=== PATIENT | male | born 1965 | race Caucasian/White ===

== ENCOUNTER 2020-10-07 12:22 | Inpatient (IN) ==
[2020-10-07] MEDS ORDERED: Haloperidol Lactate 5 MG/ML VIAL IM ONE (15:11)
[2020-10-07] MEDS ORDERED: Ondansetron 4 MG/2 ML VIAL IVP PRN (15:12)
[2020-10-07] MEDS ORDERED: Naloxone 0.4 MG/ML INJ IVP PRN (15:12)
[2020-10-07] MEDS ORDERED: Ringers Solution, Lactated 1,000 ML IVC SCH (15:15)
[2020-10-07] MEDS ORDERED: D5% in Water 1,000 ML IVC PRN (15:30)
[2020-10-07] MEDS ORDERED: Dextrose Gel 15 GM/37.5 ML TUBE PO PRN ×2 (15:30)
[2020-10-07] MEDS ORDERED: *HR* Dextrose 50 % in Water (Vial) 50 ML VIAL IVP PRN (15:30)
[2020-10-07] MEDS ORDERED: Haloperidol Lactate 5 MG/ML VIAL IVP PRN (15:55)
[2020-10-07] MEDS: Acetaminophen 325 MG TABLET PO PRN (16:14)
[2020-10-07] MEDS: Insulin LISPRO 300 UNITS/3 ML VIAL SUBQ SCH ×2 (16:19→21:06)
[2020-10-07] MEDS: 0.9 % Sodium Chloride 1,000 ML IVC SCH (16:19)
[2020-10-07] MEDS: Topiramate 25 MG CAP.SPRINK PO SCH (18:44)
[2020-10-07] MEDS: *HR* Heparin 5,000 UNIT/ML VIAL SQ SCH (18:45)
[2020-10-07] MEDS: Gabapentin 300 MG CAPSULE PO SCH (20:53)
[2020-10-07] MEDS: Insulin DETEMIR 100 UNIT/ML X5UNITS SUBQ SCH (21:06)
[2020-10-08] MEDS: 0.9 % Sodium Chloride 1,000 ML IVC SCH ×3 (01:17→22:47)
[2020-10-08] MEDS: *HR* Heparin 5,000 UNIT/ML VIAL SQ SCH ×2 (05:30→17:17)
[2020-10-08] MEDS ORDERED: Vancomycin 1,500 MG/265 ML IV.SOLN IVPB SCH (08:00)
[2020-10-08] MEDS: Ertapenem 1,000 MG in 0.9 % Sodium Chloride Mini Bag 100 ML IVPB SCH ×2 (08:04→08:27)
[2020-10-08] MEDS: Gabapentin 300 MG CAPSULE PO SCH ×3 (08:04→20:54)
[2020-10-08] MEDS: Topiramate 25 MG CAP.SPRINK PO SCH ×2 (08:04→17:16)
[2020-10-08] MEDS: Insulin LISPRO 300 UNITS/3 ML VIAL SUBQ SCH ×4 (08:12→20:54)
[2020-10-08] MEDS: Acetaminophen 325 MG TABLET PO PRN (12:38)
[2020-10-08 16:09] LABS: Basophils # 0.1 K/mcL (0.0-0.2); Basophils % 0.4 %; Eosinophils # 0.2 K/mcL (0.0-0.6); Eosinophils % 1.5 %; Hematocrit 40.6 % (37.5-50.1); Hemoglobin 13.2 g/dL (12.9-16.9); Immature Granulocytes % 0.7 % (0-4); Lymphocytes % 14.2 %; Mean Corpuscular HGB Conc 32.5 g/dL (31.6-35.5); Mean Corpuscular Hemoglobin 28.3 pg (28.0-33.3); Mean Corpuscular Volume 86.9 fL (83.0-100.0); Mean Platelet Volume 11.6 fL (9.4-12.4); Monocytes # 1.8 K/mcL (0.0-1.3); Monocytes % 13.1 %; Neutrophils # 9.7 K/mcL (1.6-8.9); Platelet Count 198 K/mcL (140-400); Red Blood Count 4.67 M/mcL (4.19-5.50); Red Cell Distribution Width 14.2 % (11.5-14.5); Segmented Neutrophils % 70.1 %; White Blood Count 13.8 K/mcL (4.3-11.1)
[2020-10-08 16:25] LABS: BUN/Creatinine Ratio 22 (6-26); Blood Urea Nitrogen 18 mg/dL (6-20); Calcium 8.4 mg/dL (8.6-10.3); Carbon Dioxide 22 mEq/L (23-29); Chloride 106 mEq/L (98-107); Glucose 349 mg/dL (70-105); Magnesium 1.3 mg/dL (1.6-2.6); Osmolality,Calculated 294 (280-300); Potassium 3.2 mEq/L (3.5-5.1); Sodium 134 mEq/L (136-145); eGFR For African Americans > 60 (> 60); eGFR For Non-African Americans > 60 (> 60)
[2020-10-08] MEDS: Insulin DETEMIR 100 UNIT/ML X5UNITS SUBQ SCH (20:55)
[2020-10-09 03:29] LABS: Basophils # 0.1 K/mcL (0.0-0.2); Basophils % 0.7 %; Eosinophils # 0.4 K/mcL (0.0-0.6); Eosinophils % 3.3 %; Hematocrit 41.2 % (37.5-50.1); Hemoglobin 13.5 g/dL (12.9-16.9); Immature Granulocytes % 0.5 % (0-4); Lymphocytes # 2.3 K/mcL (0.6-4.6); Lymphocytes % 21.2 %; Mean Corpuscular HGB Conc 32.8 g/dL (31.6-35.5); Mean Corpuscular Hemoglobin 28.5 pg (28.0-33.3); Mean Corpuscular Volume 87.1 fL (83.0-100.0); Mean Platelet Volume 11.2 fL (9.4-12.4); Monocytes # 1.3 K/mcL (0.0-1.3); Monocytes % 12.4 %; Neutrophils # 6.6 K/mcL (1.6-8.9); Platelet Count 203 K/mcL (140-400); Red Blood Count 4.73 M/mcL (4.19-5.50); Red Cell Distribution Width 14.1 % (11.5-14.5); Segmented Neutrophils % 61.9 %; White Blood Count 10.7 K/mcL (4.3-11.1)
[2020-10-09] MEDS: Acetaminophen 325 MG TABLET PO PRN (03:41)
[2020-10-09 03:47] LABS: BUN/Creatinine Ratio 19 (6-26); Blood Urea Nitrogen 15 mg/dL (6-20); Calcium 8.5 mg/dL (8.6-10.3); Carbon Dioxide 21 mEq/L (23-29); Chloride 108 mEq/L (98-107); Glucose 264 mg/dL (70-105); Osmolality,Calculated 294 (280-300); Potassium 3.2 mEq/L (3.5-5.1); Sodium 137 mEq/L (136-145); eGFR For African Americans > 60 (> 60); eGFR For Non-African Americans > 60 (> 60)
[2020-10-09] MEDS: *HR* Heparin 5,000 UNIT/ML VIAL SQ SCH ×2 (05:33→16:46)
[2020-10-09] MEDS: *HR* OxyCODONE Immed Rel 5 MG TABLET PO PRN ×3 (06:16→22:41)
[2020-10-09] MEDS ORDERED: Potassium Chloride 40 MEQ, Lidocaine 1% 2 ML in 0.9 % Sodium Chloride 500 ML IVPB ONE (07:22)
[2020-10-09] MEDS: Gabapentin 300 MG CAPSULE PO SCH ×3 (08:18→20:04)
[2020-10-09] MEDS: Topiramate 25 MG CAP.SPRINK PO SCH ×2 (08:18→16:46)
[2020-10-09] MEDS: Insulin LISPRO 300 UNITS/3 ML VIAL SUBQ SCH ×4 (08:19→20:23)
[2020-10-09] MEDS ORDERED: cefTRIAXone 1,000 MG in 0.9 % Sodium Chloride Mini Bag 100 ML IVPB SCH (09:00)
[2020-10-09] MEDS: 0.9 % Sodium Chloride 1,000 ML IVC SCH ×2 (10:27→20:02)
[2020-10-09] MEDS ORDERED: Artificial Tears SOLN 15 ML BOTTLE BOTH EYES PRN (12:58)
[2020-10-09] MEDS: Baclofen 10 MG TABLET PO SCH ×2 (16:45→20:04)
[2020-10-09] MEDS ORDERED: Perflutren Lipid Microsphere 1.3 ML in 0.9 % Sodium Chloride 8.7 ML IVP PRN (18:44)
[2020-10-09] MEDS: Nicotine 21 MG PATCH.TD24 TD SCH (20:03)
[2020-10-09] MEDS: CeFAZolin 2 GM/120 ML BAG IVPB SCH (20:05)
[2020-10-09] MEDS: Insulin DETEMIR 100 UNIT/ML X5UNITS SUBQ SCH (20:23)
[2020-10-10] MEDS: CeFAZolin 2 GM/120 ML BAG IVPB SCH ×3 (03:29→20:41)
[2020-10-10] MEDS: 0.9 % Sodium Chloride 1,000 ML IVC SCH (05:39)
[2020-10-10] MEDS: *HR* Heparin 5,000 UNIT/ML VIAL SQ SCH ×3 (05:39→17:16)
[2020-10-10] MEDS: *HR* OxyCODONE Immed Rel 5 MG TABLET PO PRN ×3 (05:40→20:46)
[2020-10-10 05:51] LABS: Basophils # 0.1 K/mcL (0.0-0.2); Basophils % 0.6 %; Eosinophils # 0.4 K/mcL (0.0-0.6); Eosinophils % 4.7 %; Hematocrit 42.5 % (37.5-50.1); Immature Granulocytes % 0.4 % (0-4); Lymphocytes # 2.3 K/mcL (0.6-4.6); Lymphocytes % 27.7 %; Mean Corpuscular HGB Conc 32.9 g/dL (31.6-35.5); Mean Corpuscular Hemoglobin 28.4 pg (28.0-33.3); Mean Corpuscular Volume 86.2 fL (83.0-100.0); Mean Platelet Volume 11.1 fL (9.4-12.4); Monocytes # 0.8 K/mcL (0.0-1.3); Monocytes % 9.9 %; Neutrophils # 4.7 K/mcL (1.6-8.9); Platelet Count 206 K/mcL (140-400); Red Blood Count 4.93 M/mcL (4.19-5.50); Red Cell Distribution Width 14.1 % (11.5-14.5); Segmented Neutrophils % 56.7 %; White Blood Count 8.4 K/mcL (4.3-11.1)
[2020-10-10 06:12] LABS: BUN/Creatinine Ratio 12 (6-26); Blood Urea Nitrogen 10 mg/dL (6-20); Carbon Dioxide 22 mEq/L (23-29); Chloride 109 mEq/L (98-107); Glucose 318 mg/dL (70-105); Osmolality,Calculated 299 (280-300); Potassium 3.1 mEq/L (3.5-5.1); Sodium 139 mEq/L (136-145); eGFR For African Americans > 60 (> 60); eGFR For Non-African Americans > 60 (> 60)
[2020-10-10] MEDS: Baclofen 10 MG TABLET PO SCH ×3 (08:46→20:41)
[2020-10-10] MEDS: Topiramate 25 MG CAP.SPRINK PO SCH ×2 (08:46→17:15)
[2020-10-10] MEDS: Loratadine 10 MG TABLET PO SCH (08:46)
[2020-10-10] MEDS: Gabapentin 300 MG CAPSULE PO SCH ×3 (08:47→20:41)
[2020-10-10] MEDS: Sennosides/Docusate Sodium TABLET PO SCH (08:47)
[2020-10-10] MEDS: Nicotine 21 MG PATCH.TD24 TD SCH (08:47)
[2020-10-10] MEDS: Insulin LISPRO 300 UNITS/3 ML VIAL SUBQ SCH ×5 (08:48→20:47)
[2020-10-10] MEDS ORDERED: Insulin DETEMIR 100 UNIT/ML X5UNITS SUBQ SCH (21:00)
[2020-10-11] MEDS: *HR* OxyCODONE Immed Rel 5 MG TABLET PO PRN ×3 (03:09→18:15)
[2020-10-11] MEDS: CeFAZolin 2 GM/120 ML BAG IVPB SCH ×3 (03:10→18:15)
[2020-10-11] MEDS: *HR* Heparin 5,000 UNIT/ML VIAL SQ SCH ×2 (05:23→17:30)
[2020-10-11 05:45] LABS: Basophils # 0.1 K/mcL (0.0-0.2); Basophils % 0.7 %; Eosinophils # 0.4 K/mcL (0.0-0.6); Eosinophils % 4.4 %; Hematocrit 42.7 % (37.5-50.1); Hemoglobin 13.8 g/dL (12.9-16.9); Immature Granulocytes % 0.7 % (0-4); Lymphocytes # 2.4 K/mcL (0.6-4.6); Lymphocytes % 28.6 %; Mean Corpuscular HGB Conc 32.3 g/dL (31.6-35.5); Mean Corpuscular Hemoglobin 28.2 pg (28.0-33.3); Mean Corpuscular Volume 87.3 fL (83.0-100.0); Mean Platelet Volume 11.3 fL (9.4-12.4); Monocytes # 0.8 K/mcL (0.0-1.3); Monocytes % 9.3 %; Neutrophils # 4.7 K/mcL (1.6-8.9); Platelet Count 208 K/mcL (140-400); Red Blood Count 4.89 M/mcL (4.19-5.50); Red Cell Distribution Width 14.2 % (11.5-14.5); Segmented Neutrophils % 56.3 %; White Blood Count 8.4 K/mcL (4.3-11.1)
[2020-10-11 06:07] LABS: BUN/Creatinine Ratio 12 (6-26); Blood Urea Nitrogen 8 mg/dL (6-20); Calcium 8.2 mg/dL (8.6-10.3); Carbon Dioxide 23 mEq/L (23-29); Chloride 107 mEq/L (98-107); Glucose 365 mg/dL (70-105); Osmolality,Calculated 299 (280-300); Potassium 3.4 mEq/L (3.5-5.1); Sodium 138 mEq/L (136-145); eGFR For African Americans > 60 (> 60); eGFR For Non-African Americans > 60 (> 60)
[2020-10-11] MEDS: Sennosides/Docusate Sodium TABLET PO SCH (07:51)
[2020-10-11] MEDS: Baclofen 10 MG TABLET PO SCH ×3 (07:52→21:26)
[2020-10-11] MEDS: Topiramate 25 MG CAP.SPRINK PO SCH ×2 (07:52→17:32)
[2020-10-11] MEDS: Loratadine 10 MG TABLET PO SCH (07:52)
[2020-10-11] MEDS: Insulin LISPRO 300 UNITS/3 ML VIAL SUBQ SCH ×4 (07:53→21:28)
[2020-10-11] MEDS: Nicotine 21 MG PATCH.TD24 TD SCH (07:53)
[2020-10-11] MEDS: Gabapentin 300 MG CAPSULE PO SCH ×3 (07:53→21:26)
[2020-10-11] MEDS ORDERED: Potassium Chloride Elixir 20 MEQ/15 ML UDC PO ONE (09:05)
[2020-10-11] MEDS: Insulin DETEMIR 100 UNIT/ML X5UNITS SUBQ SCH ×2 (09:42→21:28)
[2020-10-11] MEDS ORDERED: Ketorolac 15 MG/ML VIAL IVP ONE (21:30)
[2020-10-12] MEDS ORDERED: ceFAZolin 2,000 MG in 0.9 % Sodium Chloride 100 ML IVPB SCH
[2020-10-12] MEDS: *HR* OxyCODONE Immed Rel 5 MG TABLET PO PRN ×2 (00:41→09:23)
[2020-10-12] MEDS: CeFAZolin 2 GM/120 ML BAG IVPB SCH ×2 (02:11→14:13)
[2020-10-12] MEDS: *HR* Heparin 5,000 UNIT/ML VIAL SQ SCH (05:04)
[2020-10-12 05:35] LABS: Basophils # 0.1 K/mcL (0.0-0.2); Eosinophils # 0.4 K/mcL (0.0-0.6); Eosinophils % 4.3 %; Hemoglobin 13.6 g/dL (12.9-16.9); Immature Granulocytes % 0.9 % (0-4); Lymphocytes # 2.9 K/mcL (0.6-4.6); Lymphocytes % 29.9 %; Mean Corpuscular HGB Conc 32.4 g/dL (31.6-35.5); Mean Corpuscular Volume 86.4 fL (83.0-100.0); Mean Platelet Volume 11.2 fL (9.4-12.4); Monocytes # 0.9 K/mcL (0.0-1.3); Monocytes % 8.8 %; Neutrophils # 5.3 K/mcL (1.6-8.9); Platelet Count 243 K/mcL (140-400); Red Blood Count 4.86 M/mcL (4.19-5.50); Segmented Neutrophils % 55.1 %; White Blood Count 9.7 K/mcL (4.3-11.1)
[2020-10-12 05:59] LABS: BUN/Creatinine Ratio 12 (6-26); Blood Urea Nitrogen 9 mg/dL (6-20); Calcium 8.2 mg/dL (8.6-10.3); Carbon Dioxide 26 mEq/L (23-29); Chloride 106 mEq/L (98-107); Glucose 288 mg/dL (70-105); Osmolality,Calculated 295 (280-300); Potassium 3.3 mEq/L (3.5-5.1); Sodium 138 mEq/L (136-145); eGFR For African Americans > 60 (> 60); eGFR For Non-African Americans > 60 (> 60)
[2020-10-12 08:35] VITALS: BP 140/91
[2020-10-12] MEDS: Insulin LISPRO 300 UNITS/3 ML VIAL SUBQ SCH ×2 (09:18→12:25)
[2020-10-12] MEDS: Nicotine 21 MG PATCH.TD24 TD SCH (09:18)
[2020-10-12] MEDS: Topiramate 25 MG CAP.SPRINK PO SCH (09:19)
[2020-10-12] MEDS: Gabapentin 300 MG CAPSULE PO SCH ×2 (09:19→14:14)
[2020-10-12] MEDS: Sennosides/Docusate Sodium TABLET PO SCH (09:20)
[2020-10-12] MEDS: Baclofen 10 MG TABLET PO SCH ×2 (09:20→14:14)
[2020-10-12] MEDS: Loratadine 10 MG TABLET PO SCH (09:20)
[2020-10-12] MEDS ORDERED: Potassium Chloride Elixir 20 MEQ/15 ML UDC PO ONE (09:26)
[2020-10-12] MEDS: Insulin DETEMIR 100 UNIT/ML X5UNITS SUBQ SCH (09:35)
[2020-10-12 14:01] LABS: Influenza A PCR Negative (Negative); Influenza B PCR Negative (Negative); Resp. Syncytial Virus PCR Negative (Negative)
[2020-10-12 14:03] LABS: SARS-CoV-2 by PCR (In House) Negative (Negative)
[2020-10-12 14:08] LABS: Estimated Average Glucose 375 mg/dl; Hemoglobin A1C 14.7 %
[2020-10-12] MEDS ORDERED: *HR* OxyCODONE Immed Rel 5 MG TABLET PO ONE (15:25)
== END 2020-10-12 16:03 | DRG 466 ==
LOC: 3ANU → SUATTDRO 14:24
PROVIDERS: ADMIT Internal Medicine; ATTEND Internal Medicine

== ENCOUNTER 2020-11-08 14:29 | Inpatient (IN) ==
[2020-11-08] MEDS ORDERED: Naloxone 0.4 MG/ML INJ IVP PRN (16:54)
[2020-11-08] MEDS ORDERED: Acetaminophen 325 MG TABLET PO PRN (16:54)
[2020-11-08] MEDS ORDERED: Vancomycin (wt based) 1,000 MG VIAL IVPB SCH (17:00)
[2020-11-08] MEDS ORDERED: cefTRIAXone 1,000 MG in Water for inj. (sterile) 10 ML IVP ONE (17:00)
[2020-11-08 17:31] LABS: Basophils % 0.3 %; Immature Granulocytes % 0.9 % (0-4)
[2020-11-08 17:32] LABS: Basophils # 0.1 K/mcL (0.0-0.2); Eosinophils # 0.1 K/mcL (0.0-0.6); Eosinophils % 0.3 %; Hematocrit 39.4 % (37.5-50.1); Mean Corpuscular HGB Conc 34.3 g/dL (31.6-35.5); Mean Corpuscular Hemoglobin 29.6 pg (28.0-33.3); Mean Corpuscular Volume 86.4 fL (83.0-100.0); Monocytes # 3.3 K/mcL (0.0-1.3); Monocytes % 13.3 %; Neutrophils # 19.2 K/mcL (1.6-8.9); Platelet Count 237 K/mcL (140-400); Red Blood Count 4.56 M/mcL (4.19-5.50); Red Cell Distribution Width 14.4 % (11.5-14.5); Segmented Neutrophils % 77.2 %; White Blood Count 24.9 K/mcL (4.3-11.1)
[2020-11-08 17:33] LABS: VBG Ionized Calcium 1.08 mmol/L (1.15-1.35)
[2020-11-08 17:41] LABS: Hemoglobin 13.5 g/dL (12.9-16.9)
[2020-11-08 17:43] LABS: INR 1.5; Prothrombin Time 16.9 Seconds (9.4-12.1)
[2020-11-08 17:45] LABS: Bacteria,Urine Few per hpf (None-Few); Bilirubin,Urine Negative (Negative); Blood,Urine Moderate (Negative); Budding Yeast,Urine Many per hpf (None Seen); Clarity,Urine Ex.Turbid (Clear); Color,Urine Dark-Yellow (Yellow); Glucose,Urine (UA) >=1000 mg/dL (Normal); Ketones,Urine Negative (Negative); Leukocyte Esterase,Urine Large (Negative); Nitrite,Urine Negative (Negative); Protein,Urine 100 mg/dL (Neg-Trace); RBC,Urine TNTC per hpf (0-3); Specific Gravity,Urine 1.029 (1.010-1.025); Urobilinogen,Urine Normal (Normal); WBC,Urine TNTC per hpf (0-3)
[2020-11-08 17:46] LABS: Activated Partial Thrombo Time 29.4 Seconds (26.0-36.0)
[2020-11-08] MEDS ORDERED: D5% in Water 1,000 ML IVC PRN (17:50)
[2020-11-08] MEDS ORDERED: Dextrose Gel 15 GM/37.5 ML TUBE PO PRN ×2 (17:50)
[2020-11-08] MEDS ORDERED: *HR* Dextrose 50 % in Water (Vial) 50 ML VIAL IVP PRN (17:50)
[2020-11-08 18:08] LABS: Alanine Aminotransferase 28 Units/L (7-52); Albumin/Globulin Ratio 0.8 (1.1-2.2); Alkaline Phosphatase 90 Units/L (34-104); Aspartate Amino Transferase 22 Units/L (13-39); BUN/Creatinine Ratio 14 (6-26); Bilirubin,Direct 0.5 mg/dL (0.0-0.2); Bilirubin,Indirect 0.9 mg/dL (0.0-1.0); Bilirubin,Total 1.4 mg/dL (0.3-1.0); Blood Urea Nitrogen 19 mg/dL (6-20); Calcium 7.8 mg/dL (8.6-10.3); Carbon Dioxide 19 mEq/L (23-29); Chloride 103 mEq/L (98-107); Globulin 3.9 g/dL (2.4-3.5); Glucose 418 mg/dL (70-105); Magnesium 1.1 mg/dL (1.6-2.6); Osmolality,Calculated 294 (280-300); Potassium 4.2 mEq/L (3.5-5.1); Sodium 132 mEq/L (136-145); Total Protein 6.9 g/dL (6.4-8.9); eGFR For African Americans > 60 (> 60); eGFR For Non-African Americans 56 (> 60)
[2020-11-08] MEDS: Insulin LISPRO 300 UNITS/3 ML VIAL SUBQ SCH ×2 (18:15→23:54)
[2020-11-08 18:18] LABS: Adenovirus Not Detected (Not Detect); Bordetella Pertussis Not Detected (Not Detect); Chlamydophila pneumoniae Not Detected (Not Detect); Coronavirus 229E Not Detected (Not Detect); Coronavirus HKU1 Not Detected (Not Detect); Coronavirus NL63 Not Detected (Not Detect); Coronavirus OC43 Not Detected (Not Detect); Human Metapneumovirus Not Detected (Not Detect); Human Rhinovirus/Enterovirus Not Detected (Not Detect); Influenza A Subtype 2009 H1 Not Detected (Not Detect); Influenza B Not Detected (Not Detect); Mycoplasma pneumoniae Not Detected (Not Detect); Parainfluenza Virus 1 Not Detected (Not Detect); Parainfluenza Virus 2 Not Detected (Not Detect); Parainfluenza Virus 3 Not Detected (Not Detect); Parainfluenza Virus 4 Not Detected (Not Detect); Respiratory Syncytial Virus Not Detected (Not Detect); SARS-CoV-2 Not Detected (Not Detect)
[2020-11-08 18:25] LABS: Estimated Average Glucose 352 mg/dl; Hemoglobin A1C 13.9 %
[2020-11-08] MEDS ORDERED: Vancomycin 1,500 MG/265 ML IV.SOLN IVPB ONE (19:00)
[2020-11-08] MEDS: *HR* Heparin 5,000 UNIT/ML VIAL SQ SCH (23:54)
[2020-11-09] MEDS ORDERED: *HR* OxyCODONE Immed Rel 5 MG TABLET PO PRN (03:15)
[2020-11-09] MEDS: cefTRIAXone 2,000 MG in Water for inj. (sterile) 20 ML IVP SCH ×2 (07:06→10:01)
[2020-11-09] MEDS: Insulin LISPRO 300 UNITS/3 ML VIAL SUBQ SCH ×2 (07:06→16:11)
[2020-11-09] MEDS: *HR* Heparin 5,000 UNIT/ML VIAL SQ SCH ×2 (07:07→14:15)
[2020-11-09] MEDS ORDERED: *HR* OxyCODONE Immed Rel 15 MG TABLET PO PRN (08:12)
[2020-11-09] MEDS ORDERED: NON-FORMULARY MEDICATION 1 EACH EACH (Na Phos,M-B/Na Phos,Di-Ba [Fleet Enema Extra] 230 ML RC PRN (08:12)
[2020-11-09] MEDS ORDERED: Insulin LISPRO 300 UNITS/3 ML VIAL SUBQ SCH (08:26)
[2020-11-09] MEDS ORDERED: Artificial Tears SOLN 15 ML BOTTLE BOTH EYES PRN ×2 (08:55→13:22)
[2020-11-09] MEDS ORDERED: Sennosides/Docusate Sodium TABLET PO SCH (09:00)
[2020-11-09] MEDS ORDERED: Loratadine 10 MG TABLET PO SCH (09:00)
[2020-11-09] MEDS ORDERED: Baclofen 10 MG TABLET PO SCH (09:00)
[2020-11-09] MEDS ORDERED: Topiramate 25 MG TABLET PO SCH ×2 (09:00→18:00)
[2020-11-09 10:28] LABS: VBG Ionized Calcium 1.16 mmol/L (1.15-1.35)
[2020-11-09 10:29] LABS: Basophils # 0.1 K/mcL (0.0-0.2); Basophils % 0.3 %; Eosinophils # 0.1 K/mcL (0.0-0.6); Eosinophils % 0.3 %; Hematocrit 38.2 % (37.5-50.1); Hemoglobin 12.8 g/dL (12.9-16.9); Immature Granulocytes % 0.8 % (0-4); Lymphocytes # 1.9 K/mcL (0.6-4.6); Lymphocytes % 9.2 %; Mean Corpuscular HGB Conc 33.5 g/dL (31.6-35.5); Mean Corpuscular Hemoglobin 29.2 pg (28.0-33.3); Mean Platelet Volume 10.9 fL (9.4-12.4); Monocytes # 2.2 K/mcL (0.0-1.3); Monocytes % 10.8 %; Neutrophils # 16.3 K/mcL (1.6-8.9); Platelet Count 236 K/mcL (140-400); Red Blood Count 4.39 M/mcL (4.19-5.50); Red Cell Distribution Width 14.4 % (11.5-14.5); Segmented Neutrophils % 78.6 %; White Blood Count 20.7 K/mcL (4.3-11.1)
[2020-11-09 10:48] LABS: Alanine Aminotransferase 24 Units/L (7-52); Albumin 3.1 g/dL (3.5-5.7); Albumin/Globulin Ratio 0.8 (1.1-2.2); Alkaline Phosphatase 95 Units/L (34-104); Aspartate Amino Transferase 23 Units/L (13-39); Bilirubin,Total 1.2 mg/dL (0.3-1.0); Blood Urea Nitrogen 17 mg/dL (6-20); Calcium 8.5 mg/dL (8.6-10.3); Carbon Dioxide 22 mEq/L (23-29); Chloride 102 mEq/L (98-107); Glucose 421 mg/dL (70-105); Magnesium 1.5 mg/dL (1.6-2.6); Osmolality,Calculated 291 (280-300); Phosphorous 2.7 mg/dL (2.7-4.5); Potassium 3.8 mEq/L (3.5-5.1); Sodium 131 mEq/L (136-145); Total Protein 7.1 g/dL (6.4-8.9)
[2020-11-09 10:51] LABS: Troponin I < 0.03 ng/mL (< 0.04); Vancomycin,Random 6 mcg/mL
[2020-11-09 11:32] LABS: BUN/Creatinine Ratio 17 (6-26); eGFR For African Americans > 60 (> 60); eGFR For Non-African Americans > 60 (> 60)
[2020-11-09] MEDS ORDERED: Naloxone 0.4 MG/ML INJ IVP PRN (13:22)
[2020-11-09] MEDS ORDERED: Acetaminophen 325 MG TABLET PO PRN (13:22)
[2020-11-09] MEDS ORDERED: D5% in Water 1,000 ML IVC PRN (13:22)
[2020-11-09] MEDS ORDERED: *HR* Dextrose 50 % in Water (Vial) 50 ML VIAL IVP PRN (13:22)
[2020-11-09] MEDS ORDERED: Dextrose Gel 15 GM/37.5 ML TUBE PO PRN ×2 (13:22)
[2020-11-09] MEDS: Baclofen 10 MG TABLET PO SCH ×2 (15:00→20:10)
[2020-11-09] MEDS ORDERED: CeFAZolin 2,000 MG/120 ML BAG IVPB SCH (16:00)
[2020-11-09] MEDS: Nystatin SUSP 5 ML UD.LIQ PO SCH ×2 (16:11→20:12)
[2020-11-09] MEDS: ceFAZolin 2,000 MG in Water for inj. (sterile) 20 ML IVP SCH (16:11)
[2020-11-09] MEDS: Topiramate 25 MG TABLET PO SCH (17:13)
[2020-11-09] MEDS: *HR* OxyCODONE Immed Rel 15 MG TABLET PO PRN (18:12)
[2020-11-10] MEDS: Insulin LISPRO 300 UNITS/3 ML VIAL SUBQ SCH ×4 (00:56→15:50)
[2020-11-10] MEDS: *HR* Heparin 5,000 UNIT/ML VIAL SQ SCH ×3 (00:56→14:48)
[2020-11-10] MEDS: ceFAZolin 2,000 MG in Water for inj. (sterile) 20 ML IVP SCH ×3 (00:58→17:27)
[2020-11-10] MEDS: *HR* OxyCODONE Immed Rel 15 MG TABLET PO PRN ×2 (05:41→15:40)
[2020-11-10] MEDS: Sennosides/Docusate Sodium TABLET PO SCH (08:47)
[2020-11-10] MEDS: Nystatin SUSP 5 ML UD.LIQ PO SCH ×4 (08:47→21:01)
[2020-11-10] MEDS: Loratadine 10 MG TABLET PO SCH (08:47)
[2020-11-10] MEDS: Topiramate 25 MG TABLET PO SCH ×2 (08:47→17:27)
[2020-11-10] MEDS: Baclofen 10 MG TABLET PO SCH ×3 (08:47→20:58)
[2020-11-10] MEDS ORDERED: cefTRIAXone 2,000 MG in Water for inj. (sterile) 20 ML IVP SCH (10:00)
[2020-11-10 13:12] LABS: VBG Ionized Calcium 1.13 mmol/L (1.15-1.35)
[2020-11-10 13:15] LABS: Eosinophils % 2.4 %; Hematocrit 41.6 % (37.5-50.1); Mean Platelet Volume 11.3 fL (9.4-12.4); Red Cell Distribution Width 13.9 % (11.5-14.5)
[2020-11-10 13:17] LABS: Basophils # 0.1 K/mcL (0.0-0.2); Basophils % 0.5 %; Eosinophils # 0.4 K/mcL (0.0-0.6); Hemoglobin 13.6 g/dL (12.9-16.9); Immature Granulocytes % 0.6 % (0-4); Immature Platelets 5.9 % (1.1-6.1); Lymphocytes # 1.8 K/mcL (0.6-4.6); Lymphocytes % 11.4 %; Mean Corpuscular HGB Conc 32.7 g/dL (31.6-35.5); Mean Corpuscular Hemoglobin 28.4 pg (28.0-33.3); Mean Corpuscular Volume 86.8 fL (83.0-100.0); Monocytes # 1.5 K/mcL (0.0-1.3); Monocytes % 9.2 %; Neutrophils # 12.2 K/mcL (1.6-8.9); Platelet Count 244 K/mcL (140-400); Red Blood Count 4.79 M/mcL (4.19-5.50); Segmented Neutrophils % 75.9 %; White Blood Count 16.1 K/mcL (4.3-11.1)
[2020-11-10 13:34] LABS: Alanine Aminotransferase 21 Units/L (7-52); Albumin 3.3 g/dL (3.5-5.7); Albumin/Globulin Ratio 0.7 (1.1-2.2); Alkaline Phosphatase 91 Units/L (34-104); Aspartate Amino Transferase 26 Units/L (13-39); BUN/Creatinine Ratio 14 (6-26); Blood Urea Nitrogen 15 mg/dL (6-20); Calcium 8.9 mg/dL (8.6-10.3); Carbon Dioxide 23 mEq/L (23-29); Chloride 100 mEq/L (98-107); Globulin 4.5 g/dL (2.4-3.5); Glucose 289 mg/dL (70-105); Magnesium 1.5 mg/dL (1.6-2.6); Osmolality,Calculated 287 (280-300); Phosphorous 2.2 mg/dL (2.7-4.5); Potassium 4.1 mEq/L (3.5-5.1); Sodium 133 mEq/L (136-145); Total Protein 7.8 g/dL (6.4-8.9); eGFR For African Americans > 60 (> 60); eGFR For Non-African Americans > 60 (> 60)
[2020-11-10] MEDS: Insulin DETEMIR 100 UNIT/ML X5UNITS SUBQ SCH (21:00)
[2020-11-11] MEDS: ceFAZolin 2,000 MG in Water for inj. (sterile) 20 ML IVP SCH ×3 (00:21→15:34)
[2020-11-11] MEDS: *HR* Enoxaparin 40 MG/0.4 ML SYRINGE SQ SCH (05:05)
[2020-11-11] MEDS: *HR* OxyCODONE Immed Rel 15 MG TABLET PO PRN ×4 (06:26→20:27)
[2020-11-11] MEDS: Insulin LISPRO 300 UNITS/3 ML VIAL SUBQ SCH ×3 (07:58→18:03)
[2020-11-11] MEDS: Topiramate 25 MG TABLET PO SCH ×2 (07:59→18:02)
[2020-11-11] MEDS: Nystatin SUSP 5 ML UD.LIQ PO SCH ×4 (08:00→20:37)
[2020-11-11] MEDS: Baclofen 10 MG TABLET PO SCH ×3 (08:00→20:27)
[2020-11-11] MEDS: Loratadine 10 MG TABLET PO SCH (08:00)
[2020-11-11] MEDS: Sennosides/Docusate Sodium TABLET PO SCH (08:00)
[2020-11-11 11:23] LABS: VBG Ionized Calcium 1.16 mmol/L (1.15-1.35)
[2020-11-11 11:24] LABS: Hematocrit 38.5 % (37.5-50.1); Hemoglobin 12.7 g/dL (12.9-16.9); Mean Corpuscular Hemoglobin 28.3 pg (28.0-33.3); Mean Corpuscular Volume 85.9 fL (83.0-100.0); Mean Platelet Volume 10.5 fL (9.4-12.4); Platelet Count 308 K/mcL (140-400); Red Blood Count 4.48 M/mcL (4.19-5.50)
[2020-11-11 11:46] LABS: Alanine Aminotransferase 14 Units/L (7-52); Albumin/Globulin Ratio 0.7 (1.1-2.2); Alkaline Phosphatase 87 Units/L (34-104); Aspartate Amino Transferase 24 Units/L (13-39); BUN/Creatinine Ratio 19 (6-26); Bilirubin,Total 0.8 mg/dL (0.3-1.0); Blood Urea Nitrogen 17 mg/dL (6-20); Calcium 8.6 mg/dL (8.6-10.3); Carbon Dioxide 22 mEq/L (23-29); Chloride 103 mEq/L (98-107); Globulin 4.2 g/dL (2.4-3.5); Glucose 273 mg/dL (70-105); Magnesium 1.6 mg/dL (1.6-2.6); Osmolality,Calculated 289 (280-300); Phosphorous 2.4 mg/dL (2.7-4.5); Potassium 3.5 mEq/L (3.5-5.1); Sodium 134 mEq/L (136-145); Total Protein 7.2 g/dL (6.4-8.9); eGFR For African Americans > 60 (> 60); eGFR For Non-African Americans > 60 (> 60)
[2020-11-11 12:11] LABS: Monocytes # 1.1 K/mcL (0.0-1.3); Neutrophils # 10.9 K/mcL (1.6-8.9); Platelet Estimate Normal (Normal); Reactive Lymphocytes Present (Not Present); Toxic Granulation Present (Not Present)
[2020-11-11] MEDS: Insulin DETEMIR 100 UNIT/ML X5UNITS SUBQ SCH (20:30)
[2020-11-12] MEDS: *HR* OxyCODONE Immed Rel 15 MG TABLET PO PRN ×5 (00:39→23:21)
[2020-11-12] MEDS: ceFAZolin 2,000 MG in Water for inj. (sterile) 20 ML IVP SCH ×4 (00:39→23:21)
[2020-11-12] MEDS: *HR* Enoxaparin 40 MG/0.4 ML SYRINGE SQ SCH (05:35)
[2020-11-12] MEDS: Insulin LISPRO 300 UNITS/3 ML VIAL SUBQ SCH ×4 (09:30→16:52)
[2020-11-12] MEDS: Baclofen 10 MG TABLET PO SCH ×3 (10:56→21:09)
[2020-11-12] MEDS: Loratadine 10 MG TABLET PO SCH (10:56)
[2020-11-12] MEDS: Sennosides/Docusate Sodium TABLET PO SCH (10:56)
[2020-11-12] MEDS: Nystatin SUSP 5 ML UD.LIQ PO SCH ×4 (10:56→21:09)
[2020-11-12] MEDS: Topiramate 25 MG TABLET PO SCH ×2 (10:56→17:32)
[2020-11-12] MEDS: Insulin DETEMIR 100 UNIT/ML X5UNITS SUBQ SCH (21:09)
[2020-11-13] MEDS: *HR* OxyCODONE Immed Rel 15 MG TABLET PO PRN ×3 (04:33→15:04)
[2020-11-13] MEDS: *HR* Enoxaparin 40 MG/0.4 ML SYRINGE SQ SCH (05:56)
[2020-11-13 06:41] LABS: Hematocrit 41.6 % (37.5-50.1); Hemoglobin 13.7 g/dL (12.9-16.9); Mean Corpuscular HGB Conc 32.9 g/dL (31.6-35.5); Mean Corpuscular Hemoglobin 28.5 pg (28.0-33.3); Mean Corpuscular Volume 86.7 fL (83.0-100.0); Mean Platelet Volume 10.2 fL (9.4-12.4); Platelet Count 348 K/mcL (140-400); Red Cell Distribution Width 14.1 % (11.5-14.5); White Blood Count 13.8 K/mcL (4.3-11.1)
[2020-11-13 07:02] LABS: BUN/Creatinine Ratio 17 (6-26); Blood Urea Nitrogen 12 mg/dL (6-20); Calcium 8.9 mg/dL (8.6-10.3); Carbon Dioxide 23 mEq/L (23-29); Chloride 104 mEq/L (98-107); Glucose 231 mg/dL (70-105); Osmolality,Calculated 285 (280-300); Potassium 3.3 mEq/L (3.5-5.1); Sodium 134 mEq/L (136-145); eGFR For African Americans > 60 (> 60); eGFR For Non-African Americans > 60 (> 60)
[2020-11-13] MEDS: Baclofen 10 MG TABLET PO SCH ×2 (08:01→14:54)
[2020-11-13] MEDS: Loratadine 10 MG TABLET PO SCH (08:01)
[2020-11-13] MEDS: Topiramate 25 MG TABLET PO SCH (08:01)
[2020-11-13] MEDS: ceFAZolin 2,000 MG in Water for inj. (sterile) 20 ML IVP SCH (08:01)
[2020-11-13] MEDS: Nystatin SUSP 5 ML UD.LIQ PO SCH ×2 (08:02→12:04)
[2020-11-13] MEDS: Insulin LISPRO 300 UNITS/3 ML VIAL SUBQ SCH ×2 (08:02→12:03)
[2020-11-13] MEDS: Sennosides/Docusate Sodium TABLET PO SCH (08:02)
[2020-11-13 11:35] VITALS: BP 155/87
[2020-11-13] MEDS: Gabapentin 300 MG CAPSULE PO SCH ×2 (11:51→14:49)
== END 2020-11-13 15:40 | DRG 466 ==
LOC: ICNU → SUATTDRO 16:54 → 2ANU 11-09 18:26
PROVIDERS: ADMIT Pediatrics; ATTEND Internal Medicine

== ENCOUNTER 2020-12-11 01:06 | Observation (INO) ==
[2020-12-11] MEDS ORDERED: Ondansetron 4 MG/2 ML VIAL IVP PRN (03:17)
[2020-12-11] MEDS ORDERED: *HR* HYDROcodone/Acet 5/325 mg TABLET PO PRN (03:17)
[2020-12-11] MEDS ORDERED: Naloxone 0.4 MG/ML INJ IVP PRN (03:17)
[2020-12-11] MEDS ORDERED: *HR* OxyCODONE Immed Rel 5 MG TABLET PO PRN (03:17)
[2020-12-11] MEDS ORDERED: Melatonin 3 MG TABLET PO PRN (03:17)
[2020-12-11] MEDS ORDERED: Acetaminophen 325 MG TABLET PO PRN (03:17)
[2020-12-11] MEDS ORDERED: Dextrose Gel 15 GM/37.5 ML TUBE PO PRN ×2 (03:20)
[2020-12-11] MEDS ORDERED: *HR* Dextrose 50 % in Water (Vial) 50 ML VIAL IVP PRN (03:20)
[2020-12-11] MEDS ORDERED: D5% in Water 1,000 ML IVC PRN (03:20)
[2020-12-11] MEDS ORDERED: Artificial Tears SOLN 15 ML BOTTLE BOTH EYES PRN (03:24)
[2020-12-11] MEDS ORDERED: 0.9 % Sodium Chloride 1,000 ML IVC SCH ×3 (03:30→16:50)
[2020-12-11 04:41] LABS: Basophils # 0.1 K/mcL (0.0-0.2); Basophils % 0.5 %; Eosinophils # 0.4 K/mcL (0.0-0.6); Eosinophils % 2.5 %; Hemoglobin 10.7 g/dL (12.9-16.9); Immature Granulocytes % 0.8 % (0-4); Lymphocytes % 11.8 %; Mean Corpuscular HGB Conc 31.5 g/dL (31.6-35.5); Mean Corpuscular Hemoglobin 27.4 pg (28.0-33.3); Mean Corpuscular Volume 87.2 fL (83.0-100.0); Mean Platelet Volume 9.8 fL (9.4-12.4); Monocytes # 1.5 K/mcL (0.0-1.3); Monocytes % 8.8 %; Neutrophils # 12.6 K/mcL (1.6-8.9); Platelet Count 484 K/mcL (140-400); Red Cell Distribution Width 14.2 % (11.5-14.5); Segmented Neutrophils % 75.6 %; White Blood Count 16.7 K/mcL (4.3-11.1)
[2020-12-11 04:48] LABS: INR 1.5; Prothrombin Time 17.3 Seconds (9.4-12.1)
[2020-12-11 05:03] LABS: Alanine Aminotransferase < 3 Units/L (7-52); Albumin 2.7 g/dL (3.5-5.7); Albumin/Globulin Ratio 0.6 (1.1-2.2); Alkaline Phosphatase 77 Units/L (34-104); Aspartate Amino Transferase 15 Units/L (13-39); BUN/Creatinine Ratio 13 (6-26); Bilirubin,Total 0.5 mg/dL (0.3-1.0); Blood Urea Nitrogen 36 mg/dL (6-20); Calcium 7.7 mg/dL (8.6-10.3); Carbon Dioxide 18 mEq/L (23-29); Chloride 105 mEq/L (98-107); Globulin 4.8 g/dL (2.4-3.5); Glucose 222 mg/dL (70-105); Magnesium 1.2 mg/dL (1.6-2.6); Osmolality,Calculated 293 (280-300); Potassium 4.6 mEq/L (3.5-5.1); Sodium 134 mEq/L (136-145); Total Protein 7.5 g/dL (6.4-8.9); eGFR For African Americans 29 (> 60); eGFR For Non-African Americans 24 (> 60)
[2020-12-11] MEDS ORDERED: Vancomycin 1,500 MG/265 ML IV.SOLN IVPB ONE (06:00)
[2020-12-11] MEDS ORDERED: Insulin LISPRO 300 UNITS/3 ML VIAL SUBQ SCH (06:00)
[2020-12-11] MEDS ORDERED: Cefepime HCl 2,000 MG in Water for inj. (sterile) 20 ML IVP SCH ×2 (08:00→09:00)
[2020-12-11] MEDS ORDERED: Sennosides/Docusate Sodium TABLET PO SCH (09:00)
[2020-12-11] MEDS: Insulin LISPRO 300 UNITS/3 ML VIAL SUBQ SCH ×2 (11:47→17:16)
[2020-12-11 16:33] LABS: Bacteria,Urine Few per hpf (None-Few); Bilirubin,Urine Negative (Negative); Blood,Urine Small (Negative); Clarity,Urine Turbid (Clear); Color,Urine Light-Yellow (Yellow); Glucose,Urine (UA) Normal (Normal); Ketones,Urine Negative (Negative); Leukocyte Esterase,Urine Large (Negative); Nitrite,Urine Negative (Negative); Protein,Urine Negative (Neg-Trace); Specific Gravity,Urine 1.007 (1.010-1.025); Urobilinogen,Urine Normal (Normal); WBC,Urine 30-50 per hpf (0-3)
[2020-12-11 16:40] LABS: Protein/Creatinine Ratio,Urine 0.73 mg/mg (0.00-0.20); Sodium, Urine 47.7 mEq/L
[2020-12-11 19:02] VITALS: BP 118/73; PULSE 77; TEMP 97.9; O2SAT 98
[2020-12-11] MEDS ORDERED: Insulin DETEMIR 100 UNIT/ML X5UNITS SUBQ SCH (21:00)
[2020-12-11] MEDS ORDERED: *HR* Heparin 5,000 UNIT/ML VIAL SQ SCH (22:00)
== END 2020-12-11 20:37 | disposition left against medical advice (07) ==
LOC: 2ANU
PROVIDERS: ADMIT Internal Medicine; ATTEND Internal Medicine

== ENCOUNTER 2021-01-02 04:48 | Inpatient (IN) ==
[2021-01-02] MEDS ORDERED: Ondansetron 4 MG/2 ML VIAL IVP PRN (07:54)
[2021-01-02] MEDS ORDERED: Naloxone 0.4 MG/ML INJ IVP PRN (07:54)
[2021-01-02] MEDS ORDERED: Acetaminophen 325 MG TABLET PO PRN (07:54)
[2021-01-02] MEDS ORDERED: *HR* Dextrose 50 % in Water (Vial) 50 ML VIAL IVP PRN (07:58)
[2021-01-02] MEDS ORDERED: D5% in Water 1,000 ML IVC PRN (07:58)
[2021-01-02] MEDS ORDERED: Dextrose Gel 15 GM/37.5 ML TUBE PO PRN ×2 (07:58)
[2021-01-02] MEDS ORDERED: Ipratropium/Albuterol Neb 3 ML IH PRN (07:59)
[2021-01-02] MEDS ORDERED: Ringers Solution, Lactated 1,000 ML IVC SCH (08:00)
[2021-01-02] MEDS: Piperacillin/Tazobactam 3.375 GM in 0.9 % Sodium Chloride Mini Bag 100 ML IVPB SCH ×3 (09:13→23:47)
[2021-01-02] MEDS: Ringers Solution, Lactated 1,000 ML IVC SCH ×2 (09:17→18:09)
[2021-01-02] MEDS ORDERED: Vancomycin 1,250 MG/262.5 ML IV.SOLN IVPB SCH (11:00)
[2021-01-02] MEDS: Insulin LISPRO 300 UNITS/3 ML VIAL SUBQ SCH ×2 (11:46→16:49)
[2021-01-02] MEDS ORDERED: levoFLOXacin 750 MG/150 ML 750 MG/150 ML BAG IVPB SCH (12:00)
[2021-01-02] MEDS ORDERED: Artificial Tears SOLN 15 ML BOTTLE BOTH EYES PRN (14:29)
[2021-01-02] MEDS ORDERED: MOM Conc 10 ML UD.LIQ PO PRN (14:29)
[2021-01-02] MEDS: Baclofen 10 MG TABLET PO SCH ×2 (15:36→20:38)
[2021-01-02] MEDS: Gabapentin 300 MG CAPSULE PO SCH ×2 (15:36→20:38)
[2021-01-02] MEDS: Topiramate 25 MG TABLET PO SCH (17:42)
[2021-01-02] MEDS: *HR* Heparin 5,000 UNIT/ML VIAL SQ SCH (17:42)
[2021-01-02] MEDS: *HR* HYDROcodone/Acet 5/325 mg TABLET PO PRN (20:39)
[2021-01-03] MEDS: *HR* Heparin 5,000 UNIT/ML VIAL SQ SCH ×2 (05:57→17:06)
[2021-01-03] MEDS: Topiramate 25 MG TABLET PO SCH ×2 (07:46→17:06)
[2021-01-03] MEDS: Piperacillin/Tazobactam 3.375 GM in 0.9 % Sodium Chloride Mini Bag 100 ML IVPB SCH ×3 (07:46→23:21)
[2021-01-03] MEDS: Baclofen 10 MG TABLET PO SCH ×3 (07:46→19:58)
[2021-01-03] MEDS: Insulin LISPRO 300 UNITS/3 ML VIAL SUBQ SCH ×3 (07:47→17:06)
[2021-01-03] MEDS: Gabapentin 300 MG CAPSULE PO SCH ×3 (07:47→19:58)
[2021-01-03] MEDS: Loratadine 10 MG TABLET PO SCH (07:47)
[2021-01-03] MEDS ORDERED: 0.9 % Sodium Chloride 500 ML IVC SCH (11:00)
[2021-01-03] MEDS: *HR* HYDROcodone/Acet 5/325 mg TABLET PO PRN ×2 (14:27→21:28)
[2021-01-04 04:55] LABS: Basophils # 0.1 K/mcL (0.0-0.2); Basophils % 0.6 %; Eosinophils % 5.1 %; Hematocrit 32.9 % (37.5-50.1); Hemoglobin 10.8 g/dL (12.9-16.9); Immature Granulocytes % 0.7 % (0-4); Lymphocytes # 1.8 K/mcL (0.6-4.6); Lymphocytes % 8.8 %; Mean Corpuscular HGB Conc 32.8 g/dL (31.6-35.5); Mean Corpuscular Hemoglobin 27.6 pg (28.0-33.3); Mean Corpuscular Volume 83.9 fL (83.0-100.0); Mean Platelet Volume 10.6 fL (9.4-12.4); Monocytes # 1.6 K/mcL (0.0-1.3); Neutrophils # 15.4 K/mcL (1.6-8.9); Platelet Count 368 K/mcL (140-400); Red Blood Count 3.92 M/mcL (4.19-5.50); Red Cell Distribution Width 15.4 % (11.5-14.5); Segmented Neutrophils % 76.8 %
[2021-01-04 05:17] LABS: Calcium 8.5 mg/dL (8.6-10.3); Magnesium 1.2 mg/dL (1.6-2.6); Phosphorous 2.9 mg/dL (2.7-4.5); Potassium 3.9 mEq/L (3.5-5.1)
[2021-01-04] MEDS: *HR* HYDROcodone/Acet 5/325 mg TABLET PO PRN ×2 (05:42→12:36)
[2021-01-04] MEDS: *HR* Heparin 5,000 UNIT/ML VIAL SQ SCH ×2 (05:43→16:48)
[2021-01-04] MEDS ORDERED: Sodium Bicarbonate 150 MEQ in 0.45 % Sodium Chloride 1,000 ML IVC SCH (07:45)
[2021-01-04] MEDS: Meropenem 1,000 MG in Water for inj. (sterile) 20 ML IVP SCH ×2 (08:44→23:19)
[2021-01-04] MEDS: Topiramate 25 MG TABLET PO SCH ×2 (08:44→16:49)
[2021-01-04] MEDS: Baclofen 10 MG TABLET PO SCH ×3 (08:44→20:24)
[2021-01-04] MEDS: Gabapentin 300 MG CAPSULE PO SCH ×3 (08:45→22:56)
[2021-01-04] MEDS: Loratadine 10 MG TABLET PO SCH (08:45)
[2021-01-04] MEDS: Insulin LISPRO 300 UNITS/3 ML VIAL SUBQ SCH ×3 (10:25→16:54)
[2021-01-04 10:45] LABS: Uric Acid 3.7 mg/dL (2.3-7.6)
[2021-01-04] MEDS: Sodium Bicarbonate 75 MEQ in 0.45 % Sodium Chloride 1,000 ML IVC SCH (16:50)
[2021-01-04 22:49] LABS: Bacteria,Urine Few per hpf (None-Few); Bilirubin,Urine Negative (Negative); Blood,Urine Moderate (Negative); Budding Yeast,Urine Many per hpf (None Seen); Clarity,Urine Ex.Turbid (Clear); Color,Urine Yellow (Yellow); Glucose,Urine (UA) Normal (Normal); Ketones,Urine Negative (Negative); Leukocyte Esterase,Urine Large (Negative); Mucus,Urine Few per lpf (None-Few); Nitrite,Urine Negative (Negative); Protein,Urine 100 mg/dL (Neg-Trace); RBC,Urine TNTC per hpf (0-3); Renal Epithelial Cells,Urine Few per hpf (None-Few); Specific Gravity,Urine 1.023 (1.010-1.025); Squamous Epithelial Cell,Urine Few per hpf (None-Few); Transitional Epi Cells,Urine Few per hpf (None-Few); WBC,Urine TNTC per hpf (0-3)
[2021-01-04 22:52] LABS: Sodium, Urine 38.5 mEq/L
[2021-01-05 06:10] LABS: Basophils # 0.1 K/mcL (0.0-0.2); Basophils % 0.3 %; Eosinophils # 0.1 K/mcL (0.0-0.6); Eosinophils % 0.4 %; Hematocrit 31.3 % (37.5-50.1); Immature Granulocytes % 0.8 % (0-4); Lymphocytes # 1.4 K/mcL (0.6-4.6); Lymphocytes % 8.2 %; Mean Corpuscular HGB Conc 31.9 g/dL (31.6-35.5); Mean Corpuscular Hemoglobin 27.4 pg (28.0-33.3); Mean Corpuscular Volume 85.8 fL (83.0-100.0); Mean Platelet Volume 10.8 fL (9.4-12.4); Monocytes # 1.3 K/mcL (0.0-1.3); Monocytes % 7.7 %; Neutrophils # 13.9 K/mcL (1.6-8.9); Platelet Count 320 K/mcL (140-400); Red Blood Count 3.65 M/mcL (4.19-5.50); Red Cell Distribution Width 15.4 % (11.5-14.5); Segmented Neutrophils % 82.6 %; White Blood Count 16.9 K/mcL (4.3-11.1)
[2021-01-05 06:29] LABS: Calcium 8.3 mg/dL (8.6-10.3); Magnesium 1.6 mg/dL (1.6-2.6); Phosphorous 3.5 mg/dL (2.7-4.5); Potassium 3.8 mEq/L (3.5-5.1)
[2021-01-05] MEDS: *HR* HYDROcodone/Acet 5/325 mg TABLET PO PRN (06:30)
[2021-01-05] MEDS: *HR* Heparin 5,000 UNIT/ML VIAL SQ SCH ×2 (06:30→17:04)
[2021-01-05] MEDS: Insulin LISPRO 300 UNITS/3 ML VIAL SUBQ SCH ×3 (08:14→17:03)
[2021-01-05] MEDS: Loratadine 10 MG TABLET PO SCH (08:25)
[2021-01-05] MEDS: Baclofen 10 MG TABLET PO SCH ×3 (08:25→21:26)
[2021-01-05] MEDS: Topiramate 25 MG TABLET PO SCH ×2 (08:25→17:04)
[2021-01-05] MEDS: Gabapentin 300 MG CAPSULE PO SCH ×3 (08:26→21:26)
[2021-01-05] MEDS: Meropenem 1,000 MG in Water for inj. (sterile) 20 ML IVP SCH ×2 (08:26→21:26)
[2021-01-05] MEDS: Sodium Bicarbonate 75 MEQ in 0.45 % Sodium Chloride 1,000 ML IVC SCH ×3 (09:17→22:39)
[2021-01-06 05:57] LABS: Basophils # 0.1 K/mcL (0.0-0.2); Basophils % 0.6 %; Eosinophils # 0.4 K/mcL (0.0-0.6); Eosinophils % 3.1 %; Hematocrit 31.4 % (37.5-50.1); Immature Granulocytes % 0.9 % (0-4); Lymphocytes # 2.6 K/mcL (0.6-4.6); Lymphocytes % 19.1 %; Mean Corpuscular HGB Conc 31.8 g/dL (31.6-35.5); Mean Corpuscular Hemoglobin 26.9 pg (28.0-33.3); Mean Corpuscular Volume 84.4 fL (83.0-100.0); Mean Platelet Volume 10.4 fL (9.4-12.4); Monocytes # 2.2 K/mcL (0.0-1.3); Monocytes % 15.7 %; Neutrophils # 8.4 K/mcL (1.6-8.9); Platelet Count 311 K/mcL (140-400); Red Blood Count 3.72 M/mcL (4.19-5.50); Red Cell Distribution Width 15.4 % (11.5-14.5); Segmented Neutrophils % 60.6 %; White Blood Count 13.8 K/mcL (4.3-11.1)
[2021-01-06] MEDS: Sodium Bicarbonate 75 MEQ in 0.45 % Sodium Chloride 1,000 ML IVC SCH ×2 (05:58→23:50)
[2021-01-06] MEDS: *HR* Heparin 5,000 UNIT/ML VIAL SQ SCH ×2 (06:01→16:34)
[2021-01-06 06:18] LABS: Calcium 8.2 mg/dL (8.6-10.3); Magnesium 1.4 mg/dL (1.6-2.6); Phosphorous 2.3 mg/dL (2.7-4.5); Potassium 3.3 mEq/L (3.5-5.1)
[2021-01-06] MEDS: Meropenem 1,000 MG in Water for inj. (sterile) 20 ML IVP SCH ×2 (08:25→21:06)
[2021-01-06] MEDS: Baclofen 10 MG TABLET PO SCH ×3 (08:27→21:07)
[2021-01-06] MEDS: Topiramate 25 MG TABLET PO SCH ×2 (08:27→16:36)
[2021-01-06] MEDS: Loratadine 10 MG TABLET PO SCH (08:27)
[2021-01-06] MEDS: Gabapentin 300 MG CAPSULE PO SCH ×3 (08:27→21:06)
[2021-01-06] MEDS: Insulin LISPRO 300 UNITS/3 ML VIAL SUBQ SCH ×3 (08:28→17:43)
[2021-01-07] MEDS: *HR* Heparin 5,000 UNIT/ML VIAL SQ SCH ×2 (04:37→15:56)
[2021-01-07] MEDS: Insulin LISPRO 300 UNITS/3 ML VIAL SUBQ SCH ×3 (09:01→16:27)
[2021-01-07] MEDS: Meropenem 1,000 MG in Water for inj. (sterile) 20 ML IVP SCH ×2 (09:06→22:33)
[2021-01-07] MEDS: Gabapentin 300 MG CAPSULE PO SCH ×3 (09:08→22:33)
[2021-01-07] MEDS: Topiramate 25 MG TABLET PO SCH ×2 (09:08→16:27)
[2021-01-07] MEDS: Loratadine 10 MG TABLET PO SCH (09:08)
[2021-01-07] MEDS: Baclofen 10 MG TABLET PO SCH ×3 (09:08→22:33)
[2021-01-07 10:33] LABS: Hematocrit 35.1 % (37.5-50.1); Hemoglobin 11.2 g/dL (12.9-16.9); Mean Corpuscular HGB Conc 31.9 g/dL (31.6-35.5); Mean Corpuscular Hemoglobin 27.1 pg (28.0-33.3); Platelet Count 302 K/mcL (140-400); Red Blood Count 4.13 M/mcL (4.19-5.50); Red Cell Distribution Width 15.7 % (11.5-14.5); White Blood Count 9.7 K/mcL (4.3-11.1)
[2021-01-07 10:50] LABS: BUN/Creatinine Ratio 25 (6-26); Blood Urea Nitrogen 29 mg/dL (6-20); Calcium 7.9 mg/dL (8.6-10.3); Carbon Dioxide 21 mEq/L (23-29); Chloride 108 mEq/L (98-107); Glucose 239 mg/dL (70-105); Magnesium 1.4 mg/dL (1.6-2.6); Osmolality,Calculated 298 (280-300); Phosphorous 2.6 mg/dL (2.7-4.5); Potassium 3.4 mEq/L (3.5-5.1); Sodium 137 mEq/L (136-145); eGFR For African Americans > 60 (> 60); eGFR For Non-African Americans > 60 (> 60)
[2021-01-07] MEDS ORDERED: Potassium Phosphate 44 MEQ in 0.9 % Sodium Chloride 250 ML IVPB ONE (10:53)
[2021-01-07 11:01] LABS: Eosinophils # 0.2 K/mcL (0.0-0.6); Lymphocytes # 0.8 K/mcL (0.6-4.6); Monocytes # 0.6 K/mcL (0.0-1.3); Neutrophils # 8.2 K/mcL (1.6-8.9); Platelet Estimate Normal (Normal)
[2021-01-07] MEDS: Sodium Bicarbonate 75 MEQ in 0.45 % Sodium Chloride 1,000 ML IVC SCH (11:14)
[2021-01-07] MEDS: *HR* HYDROcodone/Acet 5/325 mg TABLET PO PRN (14:46)
[2021-01-07] MEDS: Insulin DETEMIR 100 UNIT/ML X5UNITS SUBQ SCH (22:33)
[2021-01-08 02:25] LABS: Basophils # 0.1 K/mcL (0.0-0.2); Basophils % 0.8 %; Eosinophils # 0.8 K/mcL (0.0-0.6); Eosinophils % 6.9 %; Hemoglobin 10.3 g/dL (12.9-16.9); Immature Granulocytes % 2.4 % (0-4); Lymphocytes # 3.7 K/mcL (0.6-4.6); Lymphocytes % 33.2 %; Mean Corpuscular HGB Conc 32.2 g/dL (31.6-35.5); Mean Platelet Volume 9.9 fL (9.4-12.4); Monocytes # 1.1 K/mcL (0.0-1.3); Monocytes % 9.6 %; Neutrophils # 5.3 K/mcL (1.6-8.9); Platelet Count 362 K/mcL (140-400); Red Blood Count 3.81 M/mcL (4.19-5.50); Red Cell Distribution Width 15.5 % (11.5-14.5); Segmented Neutrophils % 47.1 %; White Blood Count 11.2 K/mcL (4.3-11.1)
[2021-01-08 02:44] LABS: BUN/Creatinine Ratio 30 (6-26); Blood Urea Nitrogen 31 mg/dL (6-20); Calcium 8.1 mg/dL (8.6-10.3); Carbon Dioxide 22 mEq/L (23-29); Chloride 107 mEq/L (98-107); Glucose 180 mg/dL (70-105); Magnesium 1.5 mg/dL (1.6-2.6); Osmolality,Calculated 295 (280-300); Phosphorous 3.4 mg/dL (2.7-4.5); Potassium 3.6 mEq/L (3.5-5.1); Sodium 137 mEq/L (136-145); eGFR For African Americans > 60 (> 60); eGFR For Non-African Americans > 60 (> 60)
[2021-01-08 03:13] LABS: Platelet Estimate Normal (Normal); Reactive Lymphocytes Present (Not Present)
[2021-01-08] MEDS: *HR* Heparin 5,000 UNIT/ML VIAL SQ SCH ×2 (05:55→17:34)
[2021-01-08] MEDS: Baclofen 10 MG TABLET PO SCH ×3 (08:14→20:15)
[2021-01-08] MEDS: Topiramate 25 MG TABLET PO SCH ×2 (08:14→17:51)
[2021-01-08] MEDS: Gabapentin 300 MG CAPSULE PO SCH ×3 (08:14→20:15)
[2021-01-08] MEDS: Loratadine 10 MG TABLET PO SCH (08:14)
[2021-01-08] MEDS: Meropenem 1,000 MG in Water for inj. (sterile) 20 ML IVP SCH ×4 (08:15→23:25)
[2021-01-08] MEDS: Insulin LISPRO 300 UNITS/3 ML VIAL SUBQ SCH ×3 (08:17→16:28)
[2021-01-08 13:07] LABS: Adenovirus Not Detected (Not Detect); Bordetella Pertussis Not Detected (Not Detect); Chlamydophila pneumoniae Not Detected (Not Detect); Coronavirus 229E Not Detected (Not Detect); Coronavirus HKU1 Not Detected (Not Detect); Coronavirus NL63 Not Detected (Not Detect); Coronavirus OC43 Not Detected (Not Detect); Human Metapneumovirus Not Detected (Not Detect); Human Rhinovirus/Enterovirus Not Detected (Not Detect); Influenza A Subtype 2009 H1 Not Detected (Not Detect); Influenza B Not Detected (Not Detect); Mycoplasma pneumoniae Not Detected (Not Detect); Parainfluenza Virus 1 Not Detected (Not Detect); Parainfluenza Virus 2 Not Detected (Not Detect); Parainfluenza Virus 3 Not Detected (Not Detect); Parainfluenza Virus 4 Not Detected (Not Detect); Respiratory Syncytial Virus Not Detected (Not Detect); SARS-CoV-2 Not Detected (Not Detect)
[2021-01-08] MEDS: *HR* HYDROcodone/Acet 5/325 mg TABLET PO PRN (13:15)
[2021-01-08] MEDS: Insulin DETEMIR 100 UNIT/ML X5UNITS SUBQ SCH (20:15)
[2021-01-09 03:28] VITALS: BP 157/96; PULSE 71; TEMP 97.6; O2SAT 99
[2021-01-09] MEDS: *HR* Heparin 5,000 UNIT/ML VIAL SQ SCH ×2 (05:07→16:21)
[2021-01-09] MEDS: Loratadine 10 MG TABLET PO SCH (08:07)
[2021-01-09] MEDS: Gabapentin 300 MG CAPSULE PO SCH ×2 (08:08→15:14)
[2021-01-09] MEDS: Meropenem 1,000 MG in Water for inj. (sterile) 20 ML IVP SCH ×2 (08:08→16:53)
[2021-01-09] MEDS: *HR* HYDROcodone/Acet 5/325 mg TABLET PO PRN ×2 (08:08→15:15)
[2021-01-09] MEDS: Topiramate 25 MG TABLET PO SCH ×2 (08:08→16:52)
[2021-01-09] MEDS: Baclofen 10 MG TABLET PO SCH ×2 (08:08→15:15)
[2021-01-09] MEDS: Insulin LISPRO 300 UNITS/3 ML VIAL SUBQ SCH ×3 (08:29→16:21)
== END 2021-01-09 19:06 | DRG 466 ==
LOC: 2NNU → SUATTDRO 07:29 → 2NNU 08:16 → 2ANU 01-03 12:45
PROVIDERS: ADMIT Student in an Organized Health Care Education/Training Program; ATTEND Internal Medicine